=== PATIENT | female | born 1955 | race Caucasian/White ===

== ENCOUNTER → 2020-01-05 | Outpatient (CLI) | payer MEDICARE, BC ==
[~2020-01-05] MED LIST: ALPRAZOLAM1 MG PO; EXEMESTANE25 MG PO; IOPAMIDOL 370 MG/ML 200 ML INFUS..BTL INJ ONE; METHADONE HCL10 MG PO; NORCO 10MG-325MG1 EA PO; OMEPRAZOLE40 MG PO; SODIUM CHLORIDE 0.9% 50ML 0 ML ONE; SOMA350 MG PO; TRIAMTERENE-HCTZ1 EA PO; Z.0.DIAZEPAM10 MG PO; Z.0.HYDROCHLOROTHIA2 PO; Z.0.SIMVASTATIN40 MG PO; Z.0.TIROSINT75 MCG PO; Z.0.TRAZODONE HCL150 PO; Z.0.WELLBUTRIN XL300 PO; Z.1.MECLIZINE HCL25 PO
[2020-01-05 11:06] LABS: BLOOD UREA NITROGEN 9 mg/dL (7-26); BUN/CREATININE RATIO 13 (6-25); CREATININE, SERUM 0.71 mg/dL (0.57-1.11); EST GLOMERULAR FILTRATION RATE > 60 ML/MIN (60-)
--- NOTE | 2020-01-05 12:55 | Diagnostic Imaging Report ---
Exam: CT chest Clinical history: Abnormal chest x-ray Technique: Helical images of the chest were obtained after IV contrast administration DOSE REDUCTION: The exams was performed according to the departmental dose-optimization program which includes automated exposure control, adjustment of the mA and/or kV according to patient size and/or use of iterative reconstruction technique. Findings: There are 2 1-mm nodules in the right lung. One in the right upper lobe on image 65, series 2. The other lines also in the right upper lobe on image 37, series 2. Minimal reticular changes are also noted in the right lower lobe which may represent scarring or postinflammatory changes. There is no evidence of pulmonary consolidation, pleural effusion, pneumothorax, or edema. The tracheobronchial tree is clear. The cardiac size is within normal limits. The great vessels are normal in caliber and configuration. There is no evidence of mediastinal or hilar lymphadenopathy. A spinal stimulator lead is seen entering in the lower thoracic region traveling superiorly. The visualized upper abdominal solid organs are unremarkable. Impression: 1. There are 2 1-mm nodules in the right upper lobe. Follow-up CT in 12 months is recommended. Otherwise, unremarkable CT of chest. Signed by: Dr. Ney Landon MD on 01/05/2020 12:53 PM
== END ==
LOC: CT 10:01
PROVIDERS: ATTEND Family Medicine
DX: R93.89 Abnormal findings on diagnostic imaging of other specified body structures (principal)
CPT/HCPCS: 36415; 71260; 82565; 84520; Q9967